=== PATIENT | female | born 1965 | race Caucasian/White ===

== ENCOUNTER 2022-06-07 08:15 | Emergency (ER) | payer OTHER ==
[~2022-06-07] VITALS: Ht 160 cm; Wt 81.6 kg
[2022-06-07] MEDS ORDERED: BENZONATATE200 M1 PO (13:53)
[2022-06-07] MEDS ORDERED: BUDESONIDE0.5 MG/2 M IH (13:53)
[2022-06-07] MEDS ORDERED: LEVOFLOXACIN500 MG PO (13:53)
[2022-06-07] MEDS ORDERED: MUCINEX DM ER1 EAC1 PO (13:53)
[2022-06-07] MEDS ORDERED: IPRAT-ALBUT 0.5-3 ML IH (13:53)
[2022-06-07] MEDS ORDERED: MEDROLPACK PO (13:53)
== END 2022-06-07 14:04 ==
LOC: ER 08:15
DX: J20.9 Acute bronchitis, unspecified (principal); J32.9 Chronic sinusitis, unspecified; Z20.822 Contact with and (suspected) exposure to COVID-19